=== PATIENT | female | born 1995 | race Caucasian/White ===

== ENCOUNTER 2018-11-12 21:35 | Inpatient (IN) | payer BC ==
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
[2018-11-12 22:26] LABS: ABS Basophils 0.1 10^3/ul (0-0.2); ABS Eosinophils 0.4 10^3/ul (0-0.6); ABS Lymphocytes 3.5 10^3/ul (1.0-4.8); ABS Monocytes 0.5 10^3/ul (0-0.8); Hematocrit 44 % (35-47); Mean Corpuscular HGB Conc 35 g/dL (31-36); Mean Corpuscular Hemoglobin 33 pg (27-31); Mean Corpuscular Volume 94 fL (80-97); Mean Platelet Volume 7.6 fL (7.4-10.4); Nucleated Red Blood Cells % 0.1; Platelet Count 256 10^3/uL (150-450); Red Blood Count 4.62 10^6 /uL (3.70-4.87); Red Cell Distribution Width 13 % (10.5-15); White Blood Count 9.4 10^3/uL (3.5-10.8)
[2018-11-12 22:41] LABS: ALT 15 U/L (7-52); Albumin/Globulin Ratio 1.7 (1-3); Alkaline Phosphatase 61 U/L (34-104); BUN/Creatinine Ratio 12.7 (8-20); Blood Urea Nitrogen 9 mg/dL (6-24); CO2 Carbon Dioxide 27 mmol/L (22-32); Calcium 10.3 mg/dL (8.6-10.3); Chloride 106 mmol/L (101-111); EGFR African American 123.4 (>60); Glucose 101 mg/dL (70-100); Sodium 139 mmol/L (135-145)
[2018-11-12 22:44] LABS: Urine Appearance Cloudy; Urine Bacteria 1+ (Absent); Urine Bilirubin Negative (Negative); Urine Blood 1+ (Negative); Urine Color Yellow; Urine Glucose Negative (Negative); Urine Ketones Negative (Negative); Urine Nitrite Negative (Negative); Urine Protein Negative (Negative); Urine Red Blood Cell Trace(0-2/hpf) (Absent); Urine Specific Gravity 1.005 (1.010-1.030); Urine Squamous Epithelial Cell Present (Absent); Urine Urobilinogen Negative (Negative); Urine White Blood Cell Trace(0-5/hpf) (Absent)
[2018-11-12 22:51] LABS: Acetaminophen < 15 mcg/mL; Alcohol < 10 mg/dL (<10); Salicylate < 2.50 mg/dL (<30)
[2018-11-12 22:55] LABS: Urine Benzodiazepine Screen None Detected (None Detect); Urine Opiates Screen None Detected (None Detect)
[2018-11-12 23:07] LABS: TSH (Thyroid Stimulating Horm) 3.83 mcIU/mL (0.34-5.60)
[2018-11-12 23:26] LABS: AST 15 U/L (13-39); Anion Gap 6 mmol/L (2-11); Potassium 3.7 mmol/L (3.5-5.0)
[2018-11-13] MEDS ORDERED: Nicotine GUM* (FRUIT FLAVOR) 2 MG GUM PO PRN (03:42)
[2018-11-13] MEDS ORDERED: Al Hydrox/Mg Hydrox/Simet LIQ* 30 ML UDC PO PRN (03:42)
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
[2018-11-13 09:25] LABS: HCG Pregnancy < 0.60 mIU/mL
[2018-11-13] MEDS: Vitamin THERAPEUTIC TAB PO SCH (10:29)
[2018-11-13] MEDS ORDERED: Sertraline* 25 MG TAB PO ONE (11:12)
[2018-11-13] MEDS ORDERED: Nicotine GUM* 2 MG ONE (11:24)
[2018-11-13] MEDS: Nicotine GUM* 2 MG PO PRN (20:42)
[2018-11-13] MEDS ORDERED: Nicotine Patch Removal NOTE PATCH OFF SCH (21:00)
[2018-11-14] MEDS ORDERED: Nicotine PATCH 14 MG/24 HR* PATCH TRANSDERM SCH (08:00)
[2018-11-14] MEDS: Vitamin THERAPEUTIC TAB PO SCH (08:58)
[2018-11-14] MEDS: Sertraline* 50 MG TAB PO SCH (08:58)
[2018-11-14] MEDS: Nicotine GUM* 2 MG PO PRN ×3 (08:59→17:59)
[2018-11-14] MEDS: Acetaminophen TAB* 325 MG PO PRN (21:52)
[2018-11-15] MEDS: Nicotine GUM* 2 MG PO PRN (09:16)
[2018-11-15] MEDS: Sertraline* 50 MG TAB PO SCH (09:16)
[2018-11-15] MEDS: Vitamin THERAPEUTIC TAB PO SCH (09:16)
[2018-11-15] MEDS: Acetaminophen TAB* 325 MG PO PRN (14:13)
--- NOTE | 2018-11-15 16:54 | PN ---
Subjective - Subjective Date of Service: 11/14/18 Service Type: 39205 Hosp care 15 min low complexity Subjective: Rohini says she is still depressed, anxious and uncertain about her future. No where to go, no job and no support system in place. Denies any SI or psychosis. Objective - General Observations Appearance: Well Groomed Appears Stated Age: Yes Stature: WNL Posture: WNL Eye Contact: Average Behavior/Activity: WNL - Interaction Observations Attitude Towards Examiner: Cooperative Stated Mood: Dysphoric, Anxious Affect: Restricted Speech Pattern/Tone: Clear, Appropriate, Quiet Volume Thought Process: Coherent, Goal Directed Perception: WNL Thought Content: WNL Hallucination Type: None Delusion Type: None - Cognitive Function Orientation: A&O x 4 Level of Consciousness: Awake, Alert, Appropriate Cognition: WNL Estimated Intelligence: Normal Insight: WNL Judgment Within Normal Limits: Yes Ability to Make Reasonable Decisions: Mildly Impaired - Medication Compliance Cooperative with Inpatient Medication Regimen: Yes - Group Participation Participates in Group Activities: Yes Assessment - Assessment Merits Inpatient Hospitalization: For Immediate Safety, For Stabilization, Pending Safe DC Plan Plan - Plan Treatment Plan: Name: ROHINI HAYNES Birthdate: 1995 [id number] Continued Medication Management: Continue Outpt Medication Medications: Current Medications Acetaminophen (Tylenol Tab*) 650 mg PO Q4H PRN PRN Reason: PAIN or TEMP > 101 F Last Admin: 11/15/18 14:13 Dose: 650 mg Al Hydrox/Mg Hydrox/Simethicone (Maalox Plus*) 30 ml PO Q4H PRN PRN Reason: INDIGESTION Multivitamins (Theragran Tab*) 1 tab PO DAILY [facility] Last Admin: 11/15/18 09:16 Dose: 1 tab Nicotine Polacrilex (Nicotine Gum*) 2 mg PO Q2H PRN PRN Reason: CRAVING Last Admin: 11/15/18 09:16 Dose: 2 mg Sertraline HCl (Zoloft*) 50 mg PO DAILY [facility] Last Admin: 11/15/18 09:16 Dose: 50 mg - Discharge Plan Discharge Plan: Outpatient Follow Up Outpatient Program: [facility]
[2018-11-16] MEDS: Vitamin THERAPEUTIC TAB PO SCH (08:29)
[2018-11-16] MEDS: Sertraline* 50 MG TAB PO SCH (08:29)
[2018-11-16] MEDS: Nicotine GUM* 2 MG PO PRN ×2 (08:56→14:17)
--- NOTE | 2018-11-16 11:29 | PN ---
Subjective - Subjective Date of Service: 11/16/18 Service Type: 14695 Hosp care 35 min high complexity Subjective: Nursing Report: Patient was visible on unit, no chemical restraints or PRNs. Slept overnight without incident. She is attending group activities. CC: "I am better Patient was seen and evaluated in the common room. She reported doing well and said that she spoke to her Aunt and will plan to live with her after being discharged. The patient reported feeling safe on the unit and is interacting with peers. She reported having an adequate appetite and sleep. The patient reports attending and participating in day groups. Per nursing no behavioral issues or overnight events reported. Patient reported that she is tolerating medications without side effects. Objective - General Observations Appearance: Disheveled Appears Stated Age: Yes Stature: Thin Posture: WNL Eye Contact: Average Behavior/Activity: WNL - Interaction Observations Attitude Towards Examiner: Cooperative Stated Mood: Euthymic Affect: Blunted Speech Pattern/Tone: Clear Thought Process: Coherent Perception: WNL Thought Content: WNL Hallucination Type: None Delusion Type: None - Cognitive Function Orientation: A&O x 4 Level of Consciousness: Awake Cognition: WNL - Medication Compliance Cooperative with Inpatient Medication Regimen: Yes - Group Participation Participates in Group Activities: Yes Assessment - Assessment Merits Inpatient Hospitalization: For Immediate Safety Clinical Impression: 23 year old female presented to the emergency department with suicidal ideation. Plan - Plan Treatment Plan: Name: ABDULLAHI HAYNES Birthdate: 1995 [id number] #Continues to require inpatient admission #Q30, Staff Pass, computer access # Plan to Discharge tomorrow # Continue zoloft 50mg daily # Plans to live with Aunt upon discharge # Advocacy center evaluation Continued Medication Management: Continue Outpt Medication Medications: Current Medications Acetaminophen (Tylenol Tab*) 650 mg PO Q4H PRN PRN Reason: PAIN or TEMP > 101 F Last Admin: 11/15/18 14:13 Dose: 650 mg Al Hydrox/Mg Hydrox/Simethicone (Maalox Plus*) 30 ml PO Q4H PRN PRN Reason: INDIGESTION Multivitamins (Theragran Tab*) 1 tab PO DAILY [facility] Last Admin: 11/16/18 08:29 Dose: 1 tab Nicotine Polacrilex (Nicotine Gum*) 2 mg PO Q2H PRN PRN Reason: CRAVING Last Admin: 11/16/18 08:56 Dose: 2 mg Sertraline HCl (Zoloft*) 50 mg PO DAILY [facility] Last Admin: 11/16/18 08:29 Dose: 50 mg - Discharge Plan Discharge Plan: Inpatient Hospitalization
[2018-11-17] MEDS: Sertraline* 50 MG TAB PO SCH (07:49)
[2018-11-17] MEDS: Vitamin THERAPEUTIC TAB PO SCH (07:49)
[2018-11-17 07:50] VITALS: BP 112/71
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
[2018-11-17] MEDS ORDERED: Nicotine GUM* (FRUIT FLAVOR) 2 MG GUM PO PRN (10:47)
== END 2018-11-17 11:59 | disposition home or self-care (01) | DRG 754 ==
LOC: ED 21:35 → BSU 11-13 02:40
PROVIDERS: ADMIT Psychiatry & Neurology Psychiatry; ATTEND Psychiatry & Neurology Psychiatry
DX: F32.9 Major depressive disorder, single episode, unspecified (principal); R45.851 Suicidal ideations; F17.210 Nicotine dependence, cigarettes, uncomplicated; F12.90 Cannabis use, unspecified, uncomplicated; Z81.8 Family history of other mental and behavioral disorders; Z81.1 Family history of alcohol abuse and dependence
CPT/HCPCS: 36415; 80053; 80061; 80307; 80320; 80329; 81003; 81015; 83036; 84443; 84702; 85025; 87086; 99222; 99231; 99233; 99238; 99284; A9270-GY; G0480

== ENCOUNTER 2019-05-19 15:43 | Emergency (ER) | payer BC ==
[2019-05-19 16:54] LABS: ABS Basophils 0.1 10^3/ul (0-0.2); ABS Eosinophils 0.5 10^3/ul (0-0.6); ABS Lymphocytes 2.8 10^3/ul (1.0-4.8); ABS Monocytes 0.4 10^3/ul (0-0.8); ABS Neutrophils 3.3 10^3/ul (1.5-7.7); Eosinophil % 6.4 %; Hematocrit 42 % (35-47); Mean Corpuscular HGB Conc 35 g/dL (31-36); Mean Corpuscular Hemoglobin 34 pg (27-31); Mean Corpuscular Volume 95 fL (80-97); Nucleated Red Blood Cells % 0.1; Platelet Count 226 10^3/uL (150-450); Red Blood Count 4.46 10^6 /uL (3.70-4.87); Red Cell Distribution Width 12 % (10-15); White Blood Count 7.1 10^3/uL (3.5-10.8)
[2019-05-19 17:06] LABS: Urine Appearance Clear; Urine Bacteria 1+ (Absent); Urine Bilirubin Negative (Negative); Urine Blood Negative (Negative); Urine Color Straw; Urine Glucose Negative (Negative); Urine Ketones Negative (Negative); Urine Nitrite Negative (Negative); Urine Protein Negative (Negative); Urine Red Blood Cell Trace(0-2/hpf) (Absent); Urine Specific Gravity 1.005 (1.010-1.030); Urine Squamous Epithelial Cell Present (Absent); Urine Urobilinogen Negative (Negative); Urine White Blood Cell Trace(0-5/hpf) (Absent)
[2019-05-19 17:14] LABS: Urine Benzodiazepine Screen None Detected (None Detect); Urine Opiates Screen None Detected (None Detect)
[2019-05-19 17:15] LABS: ALT 17 U/L (7-52); Albumin 4.6 g/dL (3.2-5.2); Albumin/Globulin Ratio 1.5 (1-3); Alkaline Phosphatase 74 U/L (34-104); BUN/Creatinine Ratio 9.5 (8-20); Blood Urea Nitrogen 6 mg/dL (6-24); CO2 Carbon Dioxide 28 mmol/L (22-32); Calcium 9.8 mg/dL (8.6-10.3); Chloride 106 mmol/L (101-111); EGFR African American 140.5 (>60); EGFR Non-African American 116.1 (>60); Glucose 92 mg/dL (70-100); Sodium 140 mmol/L (135-145); Total Protein 7.6 g/dL (6.4-8.9)
--- NOTE | 2019-05-19 17:17 | ED ---
Psychiatric Complaint - HPI Summary HPI Summary: Patient is a 24-year-old female presenting to the ED with increased thoughts of depression and suicidal ideation but past few weeks. She recently had her Zoloft increased from 150 mg to 200 mg. She states she felt worsening depression prior to her recent increase of medication. She denies any plan however endorses "thoughts" of how she may commit suicide. She denies these thoughts or plan right now. She does feel unsafe however at home. She endorses smoking history. She lives alone. Denies any drug use or alcohol. - History Of Current Complaint Chief Complaint: EDSuicidal Time Seen by Provider: 05/19/19 16:32 Hx Obtained From: Patient ?: No Onset/Duration: Sudden Onset Timing: Intermittent Episode Lasting Severity Initially: Moderate Severity Currently: Moderate Character: Depressed Aggravating Factor(s): Nothing Alleviating Factor(s): Nothing Associated Signs And Symptoms: Positive: Negative Related History: Positive For: Prior Psychiatric Issues - Risk Factor(s) Completed Suicide Risk Factors: Negative - Allergies/Home Medications Allergies/Adverse Reactions: Allergies Allergy/AdvReac Type Severity Reaction Status Date / Time No Known Allergies Allergy Verified 11/12/18 21:47 Home Medications: Home Medications Sertraline* [Zoloft*] 200 mg PO DAILY 05/19/19 [History Confirmed 05/19/19] cloNIDine TAB* [Catapres 0.1 MG TAB*] 0.1 mg PO BID 05/19/19 [History Confirmed 05/19/19] PMH/Surg Hx/FS Hx/Imm Hx Previously Healthy: Yes Endocrine/Hematology History: Denies: Hx Anticoagulant Therapy Cardiovascular History: Denies: Hx Hypotension, Hx Hypertension, Hx Pacemaker/ICD Respiratory History: Denies: Hx Asthma History: Denies: Hx Dialysis Sensory History: Denies: Hx Contacts or Glasses, Hx Eye Prosthesis, Hx Legally Blind, Hx Deafness, Hx Hearing Aid Opthamlomology History: Denies: Hx Contacts or Glasses, Hx Eye Prosthesis, Hx Legally Blind Neurological History: Denies: Hx Dementia, Hx Headaches, Hx Migraine Psychiatric History: Denies: Hx Autism, Hx Eating Disorder, Hx of Violent Episodes Against Others - Immunization History Hx Pertussis Vaccination: No Immunizations Up to Date: Yes Infectious Disease History: No Infectious Disease History: Denies: Traveled Outside the [place] in Last 30 Days - Social History Occupation: Employed Full-time Lives: With Family Alcohol Use: Rare Hx Substance Use: Yes Substance Use Type: Reports: Marijuana Hx Tobacco Use: Yes Smoking Status (MU): Current Every Day Smoker Type: Cigarettes Review of Systems Negative: Fever, Chills, Fatigue, Skin Diaphoresis Negative: Palpitations, Chest Pain Negative: Shortness Of Breath, Cough Genitourinary: Negative Positive: no symptoms reported Negative: Arthralgia, Myalgia Negative: Headache, Weakness, Numbness Positive: Anxious, Depressed All Other Systems Reviewed And Are Negative: Yes Physical Exam Triage Information Reviewed: Yes Vital Signs On Initial Exam: Initial Vitals Temp Pulse Resp BP Pulse Ox 98.2 F 77 18 140/73 99 05/19/19 15:50 05/19/19 15:50 05/19/19 15:50 05/19/19 15:50 05/19/19 15:50 Vital Signs Reviewed: Yes Appearance: Positive: Well-Appearing, Well-Nourished Skin: Positive: Warm, Skin Color Reflects Adequate Perfusion Head/Face: Positive: Normal Head/Face Inspection Eyes: Positive: EOMI, NEETU, Conjunctiva Clear Neck: Positive: Supple, No Lymphadenopathy Respiratory/Lung Sounds: Positive: Clear to Auscultation, Breath Sounds Present Cardiovascular: Positive: RRR, Pulses are Symmetrical in both Upper and Lower Extremities Musculoskeletal: Positive: Normal, Strength/ROM Intact Neurological: Positive: Speech Normal Psychiatric: Positive: Affect/Mood Appropriate AVPU Assessment: Alert Procedures - Sedation Patient Received Moderate/Deep Sedation with Procedure: No Diagnostics - Vital Signs Vital Signs Temp Pulse Resp BP Pulse Ox 05/19/19 15:50 98.2 F 77 18 140/73 99 - Laboratory Lab Results: Lab Results 05/19/19 05/19/19 Range/Units 16:12 16:45 WBC 7.1 (3.5-10.8) 10^3/uL RBC 4.46 (3.70-4.87) 10^6 /uL Hgb 15.0 (12.0-16.0) g/dL Hct 42 (35-47) % MCV 95 (80-97) fL MCH 34 H (27-31) pg MCHC 35 (31-36) g/dL RDW 12 (10-15) % Plt Count 226 (150-450) 10^3/uL MPV 8.0 (7.4-10.4) fL Neut % (Auto) 46.9 % Lymph % (Auto) 40.0 % [place] % (Auto) 5.4 % Eos % (Auto) 6.4 % Baso % (Auto) 1.3 % Absolute Neuts (auto) 3.3 (1.5-7.7) 10^3/ul Absolute Lymphs (auto) 2.8 (1.0-4.8) 10^3/ul Absolute Monos (auto) 0.4 (0-0.8) 10^3/ul Absolute Eos (auto) 0.5 (0-0.6) 10^3/ul Absolute Basos (auto) 0.1 (0-0.2) 10^3/ul Absolute Nucleated RBC 0.0 10^3/ul Nucleated RBC % 0.1 Urine Color Straw Urine Appearance Clear Urine pH 8.0 (5-9) Ur Specific [place] 1.005 L (1.010-1.030) Urine Protein Negative (Negative) Urine Ketones Negative (Negative) Urine Blood Negative (Negative) Urine Nitrate Negative (Negative) Urine Bilirubin Negative (Negative) Urine Urobilinogen Negative (Negative) Ur Leukocyte Esterase 1+ A (Negative) Urine WBC (Auto) Trace(0-5/hpf) (Absent) Urine RBC (Auto) Trace(0-2/hpf) (Absent) Ur Squamous Epith Cells Present A (Absent) Urine Bacteria 1+ A (Absent) Urine Glucose Negative (Negative) Result Diagrams: 05/19/19 16:45 05/19/19 17:55 Lab Statement: Any lab studies that have been ordered have been reviewed, and results considered in the medical decision making process. Course/Dx - Course Course Of Treatment: During the course of treatment, the patient's evaluated for worsening suicidal ideation and depression. Patient has no clear plan right now, however has had thoughts over the past several weeks. Patient would like mental health evaluation. She states she would like to get her "meds figured out." She denies any drug use or alcohol use. Does endorse smoking history. Denies any physical pain including chest pain and abdominal pain, or urinary symptoms. She denies any history of anxiety. Pt is cleared for mental health evaluation. Pt is signed out to Tristan Payan PA-C pending discharge/ admission plan. - Differential Dx/Clinical Impression Differential Diagnosis/HQI/PQRI: Positive: Suicide Attempt, Suicidal Ideation, Suicidal Gesture Provider Diagnosis: Depression Discharge ED - Sign-Out/Discharge Documenting (check all that apply): Sign-Out Patient Signing out patient TO: Tristan Payan - Discharge Plan Condition: Good Disposition: HOME Patient Education Materials: Depression (ED), Suicide Prevention (ED) Referrals: [facility] [Outside] [facility] [Outside] No Primary Care Phys,NOPCP [Primary Care Provider] - - Billing Disposition and Condition Condition: GOOD Disposition: Home - Attestation Statements Provider Attestation: I was available for consultation for this patient. I did not evaluate the patient or participate in any medical decision making or disposition decisions unless I am specifically named in the chart as having consulted on the patient. If I have consulted on the patient, please see my own ED note on the patient encounter. Shahana Ramirez MD
[2019-05-19 17:33] LABS: Anion Gap 6 mmol/L (2-11)
[2019-05-19 17:49] LABS: Acetaminophen < 15 mcg/mL; Alcohol < 10 mg/dL (<10); Salicylate < 2.50 mg/dL (<30)
[2019-05-19 18:03] LABS: TSH (Thyroid Stimulating Horm) 1.22 mcIU/mL (0.34-5.60)
[2019-05-19 18:26] LABS: Potassium Redraw 3.7 mmol/L (3.5-5.0)
--- NOTE | 2019-05-19 20:15 | ED ---
Medical Screening - HPI Summary HPI Summary: Patient is a 24-year-old female presenting to the ED with increased thoughts of depression and suicidal ideation but past few weeks. She recently had her Zoloft increased from 150 mg to 200 mg. She states she felt worsening depression prior to her recent increase of medication. She denies any plan however endorses "thoughts" of how she may commit suicide. She denies these thoughts or plan right now. She does feel unsafe however at home. She endorses smoking history. She lives alone. Denies any drug use or alcohol. - History of Current Complaint Chief Complaint: EDSuicidal Stated Complaint: SUICIDAL THOUGHTS PER PT Time Seen by Provider: 05/19/19 16:32 PMH/Surg Hx/FS Hx/Imm Hx Endocrine/Hematology History: Denies: Hx Anticoagulant Therapy Cardiovascular History: Denies: Hx Hypotension, Hx Hypertension, Hx Pacemaker/ICD Respiratory History: Denies: Hx Asthma History: Denies: Hx Dialysis Sensory History: Denies: Hx Contacts or Glasses, Hx Eye Prosthesis, Hx Legally Blind, Hx Deafness, Hx Hearing Aid Opthamlomology History: Denies: Hx Contacts or Glasses, Hx Eye Prosthesis, Hx Legally Blind Neurological History: Denies: Hx Dementia, Hx Headaches, Hx Migraine Psychiatric History: Reports: Hx Eating Disorder - in college would throw up Denies: Hx Autism, Hx of Violent Episodes Against Others - Immunization History Immunizations Up to Date: Yes Infectious Disease History: No Infectious Disease History: Denies: Traveled Outside the US in Last 30 Days - Social History Occupation: Employed Full-time Lives: With Family Alcohol Use: Rare Hx Substance Use: Yes Substance Use Type: Reports: Marijuana Hx Tobacco Use: Yes Smoking Status (MU): Current Every Day Smoker Type: Cigarettes Review of Systems Negative: Fever, Chills, Fatigue, Skin Diaphoresis Negative: Palpitations, Chest Pain Negative: Shortness Of Breath, Cough Genitourinary: Negative Positive: no symptoms reported Negative: Arthralgia, Myalgia Negative: Headache, Weakness, Numbness Positive: Anxious, Depressed All Other Systems Reviewed And Are Negative: Yes Physical Exam Triage Information Reviewed: Yes Vital Signs On Initial Exam: Initial Vitals Temp Pulse Resp BP Pulse Ox 98.2 F 77 18 140/73 99 05/19/19 15:50 05/19/19 15:50 05/19/19 15:50 05/19/19 15:50 05/19/19 15:50 Vital Signs Reviewed: Yes Appearance: Positive: Well-Appearing, Well-Nourished Skin: Positive: Warm, Skin Color Reflects Adequate Perfusion Head/Face: Positive: Normal Head/Face Inspection Eyes: Positive: EOMI, NEETU, Conjunctiva Clear Neck: Positive: Supple, No Lymphadenopathy Respiratory/Lung Sounds: Positive: Clear to Auscultation, Breath Sounds Present Cardiovascular: Positive: RRR, Pulses are Symmetrical in both Upper and Lower Extremities Musculoskeletal: Positive: Normal, Strength/ROM Intact Neurological: Positive: Speech Normal Psychiatric: Positive: Affect/Mood Appropriate AVPU Assessment: Alert Procedures - Sedation Patient Received Moderate/Deep Sedation with Procedure: No Diagnostics - Vital Signs Vital Signs Temp Pulse Resp BP Pulse Ox 05/19/19 15:50 98.2 F 77 18 140/73 99 - Laboratory Lab Results: Lab Results 05/19/19 05/19/19 Range/Units 16:12 16:45 WBC 7.1 (3.5-10.8) 10^3/uL RBC 4.46 (3.70-4.87) 10^6 /uL Hgb 15.0 (12.0-16.0) g/dL Hct 42 (35-47) % MCV 95 (80-97) fL MCH 34 H (27-31) pg MCHC 35 (31-36) g/dL RDW 12 (10-15) % Plt Count 226 (150-450) 10^3/uL MPV 8.0 (7.4-10.4) fL Neut % (Auto) 46.9 % Lymph % (Auto) 40.0 % Chase % (Auto) 5.4 % Eos % (Auto) 6.4 % Baso % (Auto) 1.3 % Absolute Neuts (auto) 3.3 (1.5-7.7) 10^3/ul Absolute Lymphs (auto) 2.8 (1.0-4.8) 10^3/ul Absolute Monos (auto) 0.4 (0-0.8) 10^3/ul Absolute Eos (auto) 0.5 (0-0.6) 10^3/ul Absolute Basos (auto) 0.1 (0-0.2) 10^3/ul Absolute Nucleated RBC 0.0 10^3/ul Nucleated RBC % 0.1 Urine Color Straw Urine Appearance Clear Urine pH 8.0 (5-9) Ur Specific [place] 1.005 L (1.010-1.030) Urine Protein Negative (Negative) Urine Ketones Negative (Negative) Urine Blood Negative (Negative) Urine Nitrate Negative (Negative) Urine Bilirubin Negative (Negative) Urine Urobilinogen Negative (Negative) Ur Leukocyte Esterase 1+ A (Negative) Urine WBC (Auto) Trace(0-5/hpf) (Absent) Urine RBC (Auto) Trace(0-2/hpf) (Absent) Ur Squamous Epith Cells Present A (Absent) Urine Bacteria 1+ A (Absent) Urine Glucose Negative (Negative) Result Diagrams: 05/19/19 16:45 05/19/19 17:55 Lab Statement: Any lab studies that have been ordered have been reviewed, and results considered in the medical decision making process. Course/Dx - Course Course Of Treatment: During the course of treatment, the patient's evaluated for worsening suicidal ideation and depression. Patient has no clear plan right now, however has had thoughts over the past several weeks. Patient would like mental health evaluation. She states she would like to get her "meds figured out." She denies any drug use or alcohol use. Does endorse smoking history. Denies any physical pain including chest pain and abdominal pain, or urinary symptoms. She denies any history of anxiety. Pt is cleared for mental health evaluation. Pt is signed out to Tristan Payan PA-C pending discharge/ admission plan. - Diagnoses Provider Diagnoses: Depression Discharge ED - Sign-Out/Discharge Documenting (check all that apply): Sign-Out Patient Signing out patient TO: Tristan Payan - Discharge Plan Condition: Good Disposition: HOME Patient Education Materials: Depression (ED), Suicide Prevention (ED) Referrals: [facility] [Outside] [facility] [Outside] No Primary Care Phys,[facility] [Primary Care Provider] - - Billing Disposition and Condition Condition: GOOD Disposition: Home
--- NOTE | 2019-05-19 20:39 | PN ---
Progress Note - Progress Note Date of Service: 05/19/19 Note: Patient was signed out to me by Segundo MATTHEWS, pending mental health evaluation. Per mental health provider Dr. Mcgregor patient diagnosed with depression and discharged in stable condition.
[2019-05-19 21:15] VITALS: BP 152/88
== END 2019-05-19 21:13 | disposition home or self-care (01) ==
LOC: ED 15:43
DX: F32.9 Major depressive disorder, single episode, unspecified (principal); F17.210 Nicotine dependence, cigarettes, uncomplicated; Z79.899 Other long term (current) drug therapy
CPT/HCPCS: 36415; 80053; 80307; 80320; 80329; 81003; 81015; 84443; 85025; 87086; 99285; G0480

== ENCOUNTER 2019-05-28 09:33 | Inpatient (IN) | payer BC ==
--- NOTE | 2019-05-28 11:25 | ED ---
Psychiatric Complaint - HPI Summary HPI Summary: This patient is a 24-year-old female recently seen and [place] [facility] [place] to the ED with advocate endorsing suicidal thoughts. She denies any plan. She states symptoms have been present 1.5 months, however have been getting worse. She states her medications were recently increased. She takes Zoloft 200 mg daily. She was also recently started on Wellbutrin 150 mg daily. She states her symptoms have not improved. She reports recent self harm, however has not had any self-harm in the last few days. A friend had went to her home and cleared out all sharp objects from her home. She endorses insomnia , nightmares, anxiety, worse at night. She does take clonidine 0.2 mg at bedtime and 0.1 mg in the morning to control her anxiety. Therapist Maureen Soto [facility] is [place]. - History Of Current Complaint Chief Complaint: EDMentalHealth Time Seen by Provider: 05/28/19 09:39 Hx Obtained From: Patient ?: No Onset/Duration: Sudden Onset Timing: Constant Severity Initially: Moderate Severity Currently: Moderate Character: Depressed, Anxious Aggravating Factor(s): Recent Stress Alleviating Factor(s): Medication, Counseling Has Suicidal: Reports: Thoughts - Risk Factor(s) Completed Suicide Risk Factors: Negative - Allergies/Home Medications Allergies/Adverse Reactions: Allergies Allergy/AdvReac Type Severity Reaction Status Date / Time No Known Allergies Allergy Verified 05/28/19 17:20 Home Medications: Home Medications Biotin 5 mg PO DAILY 05/28/19 [History Confirmed 05/28/19] Cholecalciferol TAB* [Vitamin D TAB*] 1,000 unit PO DAILY 05/28/19 [History Confirmed 05/28/19] Magnesium Oxide TAB* [MagOx 400 TAB*] 400 mg PO DAILY 05/28/19 [History Confirmed 05/28/19] buPROPion SR TAB* [Wellbutrin SR TAB*] 150 mg PO DAILY 05/28/19 [History Confirmed 05/28/19] PMH/Surg Hx/FS Hx/Imm Hx Previously Healthy: Yes Endocrine/Hematology History: Denies: Hx Anticoagulant Therapy Cardiovascular History: Denies: Hx Hypotension, Hx Hypertension, Hx Pacemaker/ICD Respiratory History: Denies: Hx Asthma History: Denies: Hx Dialysis Sensory History: Denies: Hx Contacts or Glasses, Hx Eye Prosthesis, Hx Legally Blind, Hx Deafness, Hx Hearing Aid Opthamlomology History: Denies: Hx Contacts or Glasses, Hx Eye Prosthesis, Hx Legally Blind Neurological History: Denies: Hx Dementia, Hx Headaches, Hx Migraine Psychiatric History: Reports: Hx Eating Disorder - in college would throw up Denies: Hx Autism, Hx of Violent Episodes Against Others - Immunization History Hx Pertussis Vaccination: No Immunizations Up to Date: Yes Infectious Disease History: No Infectious Disease History: Denies: Traveled Outside the US in Last 30 Days - Social History Occupation: Employed Full-time Lives: With Family Alcohol Use: Rare Hx Substance Use: Yes Substance Use Type: Reports: Marijuana Hx Tobacco Use: Yes Smoking Status (MU): Current Every Day Smoker Type: Cigarettes Review of Systems Negative: Fever, Chills, Fatigue, Skin Diaphoresis Negative: Palpitations, Chest Pain Negative: Shortness Of Breath, Cough Genitourinary: Negative Positive: no symptoms reported, see HPI Negative: Arthralgia, Myalgia Neurological: Negative Positive: Anxious, Depressed All Other Systems Reviewed And Are Negative: Yes Physical Exam Triage Information Reviewed: Yes Vital Signs On Initial Exam: Initial Vitals Temp Pulse Resp BP Pulse Ox 97.3 F 78 17 123/77 97 05/28/19 09:35 05/28/19 09:35 05/28/19 09:35 05/28/19 09:35 05/28/19 09:35 Vital Signs Reviewed: Yes Appearance: Positive: Well-Appearing, Well-Nourished Skin: Positive: Warm, Skin Color Reflects Adequate Perfusion Head/Face: Positive: Normal Head/Face Inspection Eyes: Positive: EOMI, NEETU, Conjunctiva Clear Neck: Positive: Supple Respiratory/Lung Sounds: Positive: Clear to Auscultation, Breath Sounds Present Cardiovascular: Positive: RRR, Pulses are Symmetrical in both Upper and Lower Extremities Musculoskeletal: Positive: Normal, Strength/ROM Intact Neurological: Positive: Speech Normal Psychiatric: Positive: Normal, Affect/Mood Appropriate AVPU Assessment: Alert Procedures - Sedation Patient Received Moderate/Deep Sedation with Procedure: No Diagnostics - Vital Signs Vital Signs Temp Pulse Resp BP Pulse Ox 05/28/19 09:35 97.3 F 78 17 123/77 97 - Laboratory Lab Statement: Any lab studies that have been ordered have been reviewed, and results considered in the medical decision making process. Course/Dx - Course Course Of Treatment: On arrival into the ED, the patient is evaluated for worsening suicidal ideations. She denies any plan at this time and states she feels safe here. She denies any thoughts of suicide at this very moment. She denies any pain. Patient is cleared for mental health evaluation at 9:[address] Hudson, patient will be admitted with unspecified depression. - Differential Dx/Clinical Impression Differential Diagnosis/HQI/PQRI: Positive: Suicide Attempt, Suicidal Ideation, Suicidal Gesture Provider Diagnosis: Depression Discharge ED - Sign-Out/Discharge Documenting (check all that apply): Patient Departure - Discharge Plan Condition: Fair Disposition: ADMITTED TO [facility] - Billing Disposition and Condition Condition: FAIR Disposition: Admitted to [facility] - Attestation Statements Provider Attestation: I have seen the patient with the MARIA ELENA and agree with the plan and documentation below except as noted: 24-year-old female presents with worsening depression, admit to [facility] voluntarily. Shahana Ramirez MD
[2019-05-28] MEDS ORDERED: Al Hydrox/Mg Hydrox/Simet LIQ* 30 ML UDC PO PRN (14:48)
[2019-05-28 15:27] LABS: Urine Benzodiazepine Screen Presumptive Positive (None Detect); Urine Opiates Screen None Detected (None Detect)
[2019-05-28] MEDS: cloNIDine TAB* 0.1 MG PO SCH ×2 (17:55→21:57)
[2019-05-28] MEDS: Acetaminophen TAB* 325 MG PO PRN (19:50)
[2019-05-28] MEDS: Nicotine Lozenge* mini 4 MG LOZNG.MINI MT PRN (20:31)
[2019-05-28] MEDS: Nicotine Patch Removal NOTE PATCH OFF SCH (21:02)
[2019-05-28] MEDS: Nicotine PATCH 21 MG/24 HR* PATCH TRANSDERM SCH (21:02)
[2019-05-29] MEDS: buPROPion SR TAB.SR* 150 MG PO SCH (08:51)
[2019-05-29] MEDS: hydrOXYzine HCL TAB* 50 MG PO PRN (08:51)
[2019-05-29] MEDS: Cholecalciferol TAB* 1000 UNITS PO SCH (08:51)
[2019-05-29] MEDS: Magnesium Oxide TAB* 400 MG PO SCH (08:51)
[2019-05-29] MEDS: Nicotine PATCH 21 MG/24 HR* PATCH TRANSDERM SCH (08:52)
[2019-05-29] MEDS: cloNIDine TAB* 0.1 MG PO SCH ×3 (08:53→21:05)
[2019-05-29] MEDS: Nicotine Lozenge* mini 4 MG LOZNG.MINI MT PRN ×3 (08:53→19:40)
[2019-05-29] MEDS: Sertraline* 100 MG TAB PO SCH (09:04)
[2019-05-29 09:15] LABS: Cholesterol 183 mg/dL; HDL Cholesterol 41.6 mg/dL; LDL Cholesterol 98 mg/dL; Triglycerides 217 mg/dL
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
[2019-05-29] MEDS: Acetaminophen TAB* 325 MG PO PRN (21:05)
[2019-05-30] MEDS: Nicotine Patch Removal NOTE PATCH OFF SCH ×2 (01:09→20:45)
[2019-05-30] MEDS: Nicotine PATCH 21 MG/24 HR* PATCH TRANSDERM SCH (08:07)
[2019-05-30] MEDS: Sertraline* 100 MG TAB PO SCH (08:26)
[2019-05-30] MEDS: Magnesium Oxide TAB* 400 MG PO SCH (08:27)
[2019-05-30] MEDS: buPROPion SR TAB.SR* 150 MG PO SCH (08:27)
[2019-05-30] MEDS: Cholecalciferol TAB* 1000 UNITS PO SCH (08:28)
[2019-05-30] MEDS: cloNIDine TAB* 0.1 MG PO SCH ×3 (08:28→20:45)
[2019-05-30] MEDS: Nicotine Lozenge* mini 4 MG LOZNG.MINI MT PRN ×3 (09:28→19:11)
[2019-05-30] MEDS: hydrOXYzine HCL TAB* 50 MG PO PRN (09:28)
[2019-05-31] MEDS: Nicotine PATCH 21 MG/24 HR* PATCH TRANSDERM SCH (07:54)
[2019-05-31] MEDS: Magnesium Oxide TAB* 400 MG PO SCH (09:00)
[2019-05-31] MEDS: buPROPion SR TAB.SR* 150 MG PO SCH (09:00)
[2019-05-31] MEDS: Cholecalciferol TAB* 1000 UNITS PO SCH (09:00)
[2019-05-31] MEDS ORDERED: Sertraline* 50 MG TAB PO SCH (09:00)
[2019-05-31] MEDS: cloNIDine TAB* 0.1 MG PO SCH (09:01)
[2019-05-31] MEDS: Nicotine Lozenge* mini 4 MG LOZNG.MINI MT PRN (09:04)
[2019-05-31 09:13] VITALS: BP 116/62
[2019-05-31 11:23] LABS: HCG Pregnancy < 0.60 mIU/mL
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
== END 2019-05-31 12:20 | disposition home or self-care (01) | DRG 751 ==
LOC: ED 09:33 → BSU 14:48
PROVIDERS: ADMIT Psychiatry & Neurology Psychiatry; ATTEND Psychiatry & Neurology Psychiatry
DX: F33.1 Major depressive disorder, recurrent, moderate (principal); R45.851 Suicidal ideations; F43.10 Post-traumatic stress disorder, unspecified; F41.9 Anxiety disorder, unspecified; Z91.410 Personal history of adult physical and sexual abuse; F17.210 Nicotine dependence, cigarettes, uncomplicated; E66.9 Obesity, unspecified; Z68.28 Body mass index [BMI] 28.0-28.9, adult; Z81.8 Family history of other mental and behavioral disorders; Z81.1 Family history of alcohol abuse and dependence
CPT/HCPCS: 36415; 80061; 80307; 83036; 84702; 99222; 99238; 99285; A9270-GY